=== PATIENT | male | born 1935 | race Two or more races ===

== ENCOUNTER 2020-12-06 14:48 | Inpatient (IN) | payer MEDICARE, MEDICAID ==
[~2020-12-06] VITALS: Ht 172.7 cm; Wt 91.8 kg
[2020-12-06] MEDS ORDERED: CEFTRIAXONE 1 G PREMIX 50 ML IV ONE (15:15)
[2020-12-06] MEDS ORDERED: AZITHROMYCIN 500 MG in DEXT 5% WATER 250 ML IV ONE (15:15)
[2020-12-06 15:58] LABS: BASOPHILS % 0.3 % (0.0-2.0); HEMOGLOBIN. 12.3 g/dL (14.0-18.0); MEAN CORPUSCULAR HEMOGLOBIN 31.8 pg (28.0-32.0); MEAN CORPUSCULAR VOLUME 90.3 fL (80.0-94.0); MEAN PLATELET VOLUME 7.6 fl (7.4-10.4); MONOCYTES % 7.7 % (2.0-8.0); PLATELET 194 x1000/uL (130-400); RED BLOOD CELL COUNT 3.88 mill/uL (4.7-6.1); RED CELL DISTRIBUTION WIDTH 13.7 % (11.6-14.6)
[2020-12-06 16:05] LABS: CHLORIDE 97 mEq/L (98-107)
[2020-12-06 16:13] LABS: PARTIAL THROMBOPLASTIN TIME 40.1 sec (23.4-31.0); PROTHROMBIN TIME 10.4 sec (9.6-11.0)
[2020-12-06] MEDS ORDERED: DEXAMETHASONE 10 MG/ML VIAL IV ONE (16:15)
[2020-12-06 16:18] LABS: CLARITY URINE CLEAR (CLEAR); COLOR URINE DARK YELLOW (YELLOW); KETONES URINE TRACE (NEGATIVE); LEUKOCYTE ESTERASE URINE TRACE (NEGATIVE); NITRITE URINE NEGATIVE (NEGATIVE); OCCULT BLOOD URINE TRACE (NEGATIVE); PH URINE 5.5 (4.5-8.0); PROTEIN URINE 2+ (NEGATIVE); SPECIFIC GRAVITY URINE 1.027 (1.005-1.030)
[2020-12-06] MEDS ORDERED: ENOXAPARIN 100MG/ML SYR SUBCUT ONE (17:30)
[2020-12-06] MEDS ORDERED: IOHEXOL-350 100 ML BOTTLE ONE (20:05)
[2020-12-06] MEDS ORDERED: ASPIRIN 325MG EC TABLET PO ONE (20:15)
[2020-12-06] MEDS ORDERED: NA PHOS,M-B/NA PHOS,DI-BA ENEMA 118ML PR PRN (22:00)
[2020-12-06] MEDS ORDERED: KETOROLAC 15MG/ML VIAL IV PRN (22:00)
[2020-12-06] MEDS ORDERED: NITROGLYCERIN 0.4MG TABLET SL SL PRN (22:00)
[2020-12-06] MEDS ORDERED: ACETAMINOPHEN 325MG TABLET PO PRN (22:00)
[2020-12-06] MEDS ORDERED: TRAMADOL 50MG TABLET PO PRN (22:00)
[2020-12-06] MEDS ORDERED: ALBUTEROL 6.7GM HFA INHALER ORI PRN (22:00)
[2020-12-06 22:30] VITALS: BP 137/77
[2020-12-06 22:59] LABS: T4 FREE 1.43 ng/dL (0.76-1.46)
[2020-12-07] MEDS: GUAIFENESIN/DM 600MG/30MG ER TAB 12HR PO SCH ×3 (00:27→20:19)
[2020-12-07] MEDS: GUAIFENESIN 200MG/10ML SUGAR FREE UDC PO PRN (00:27)
[2020-12-07] MEDS: DILTIAZEM HCL 60MG TABLET PO SCH ×5 (00:28→23:10)
[2020-12-07] MEDS: ENOXAPARIN 30MG/0.3ML SYR SUBCUT SCH ×3 (00:28→20:19)
[2020-12-07 01:23] LABS: CREATINE KINASE 652 IU/L (39-308)
[2020-12-07 01:25] LABS: CREATINE KINASE MB FRACTION < 1.0 ng/mL (0.5-3.6)
[2020-12-07] MEDS: ALBUTEROL 6.7GM HFA INHALER ORI SCH ×4 (03:00→20:20)
[2020-12-07 04:00] VITALS: BP 169/88
[2020-12-07] MEDS: CLONIDINE 0.1MG TABLET PO PRN (04:57)
[2020-12-07 08:00] VITALS: BP 127/43
[2020-12-07] MEDS: ZINC SULFATE 220 MG ( 50 ) CAPSULE PO SCH (09:27)
[2020-12-07] MEDS: CHOLECALCIFEROL (D3) 1000 UNIT TABLET PO SCH (09:27)
[2020-12-07] MEDS: ASCORBIC ACID 500 MG TABLET PO SCH ×2 (09:27→20:19)
[2020-12-07] MEDS: ASPIRIN 325MG EC TABLET PO SCH (09:28)
[2020-12-07] MEDS: DEXAMETHASONE 10 MG/ML VIAL IV SCH (09:28)
[2020-12-07] MEDS: FAMOTIDINE 20MG TABLET PO SCH ×2 (09:28→20:19)
[2020-12-07 10:33] LABS: BASOPHILS % 0.1 % (0.0-2.0); HEMATOCRIT. 40.1 % (42.0-52.0); HEMOGLOBIN. 13.5 g/dL (14.0-18.0); LYMPHOCYTES % 15.2 % (20.0-50.0); MEAN CORPUSCULAR HEMOGLOBIN 31.2 pg (28.0-32.0); MEAN CORPUSCULAR VOLUME 92.9 fL (80.0-94.0); MEAN PLATELET VOLUME 7.8 fl (7.4-10.4); MONOCYTES % 7.1 % (2.0-8.0); NEUTROPHILS % 77.6 % (40.0-76.0); PLATELET 206 x1000/uL (130-400); RED BLOOD CELL COUNT 4.31 mill/uL (4.7-6.1); RED CELL DISTRIBUTION WIDTH 13.7 % (11.6-14.6)
[2020-12-07 10:43] LABS: CHLORIDE 98 mEq/L (98-107)
[2020-12-07 10:55] LABS: PHOSPHORUS 3.7 mg/dL (2.5-4.9)
[2020-12-07 10:56] LABS: CREATINE KINASE 177 IU/L (39-308)
[2020-12-07 10:59] LABS: CREATINE KINASE MB FRACTION 3.5 ng/mL (0.5-3.6)
[2020-12-07 11:58] VITALS: BP 117/67
[2020-12-07] MEDS ORDERED: CEFTRIAXONE 1,000 MG in DEXTROSE 5% WATER 50 ML IV SCH (15:00)
[2020-12-07] MEDS ORDERED: NALOXONE HCL 0.4MG/ML VIAL IV PRN (15:00)
[2020-12-07 16:00] VITALS: BP 128/59
[2020-12-07] MEDS ORDERED: AZITHROMYCIN 500 MG in DEXT 5% WATER 250 ML IV SCH (16:00)
[2020-12-07] MEDS: CEFTRIAXONE 1,000 MG in DEXTROSE 5% WATER 50 ML IV SCH (16:06)
[2020-12-07] MEDS: AZITHROMYCIN 500 MG in DEXT 5% WATER 250 ML IV SCH (17:21)
[2020-12-07 20:00] VITALS: BP 132/57
[2020-12-07] MEDS: ZOLPIDEM TARTRATE 5MG TABLET PO PRN ×2 (23:08→23:10)
[2020-12-08] VITALS: BP_SYST 102; BP_SYST 114; BP_DIAS 61; BP_DIAS 78
[2020-12-08] MEDS: ALBUTEROL 6.7GM HFA INHALER ORI SCH ×4 (03:04→21:48)
[2020-12-08 04:00] VITALS: BP_SYST 102; BP_SYST 133; BP_DIAS 61; BP_DIAS 97
[2020-12-08] MEDS: DILTIAZEM HCL 60MG TABLET PO SCH ×4 (05:06→23:43)
[2020-12-08 08:00] VITALS: BP 142/80
[2020-12-08] MEDS: ENOXAPARIN 30MG/0.3ML SYR SUBCUT SCH ×2 (09:53→21:44)
[2020-12-08] MEDS: ASPIRIN 325MG EC TABLET PO SCH (09:54)
[2020-12-08] MEDS: CHOLECALCIFEROL (D3) 1000 UNIT TABLET PO SCH (09:54)
[2020-12-08] MEDS: GUAIFENESIN/DM 600MG/30MG ER TAB 12HR PO SCH ×2 (09:54→21:43)
[2020-12-08] MEDS: ZINC SULFATE 220 MG ( 50 ) CAPSULE PO SCH (09:55)
[2020-12-08] MEDS: ASCORBIC ACID 500 MG TABLET PO SCH ×2 (09:55→21:43)
[2020-12-08] MEDS: FAMOTIDINE 20MG TABLET PO SCH ×2 (09:55→21:43)
[2020-12-08] MEDS: DEXAMETHASONE 10 MG/ML VIAL IV SCH (09:55)
[2020-12-08 12:00] VITALS: BP 138/74
[2020-12-08 15:50] LABS: FOLIC ACID (FOLATE) SERUM 7.4 ng/mL (>5.38)
[2020-12-08] MEDS: CEFTRIAXONE 1,000 MG in DEXTROSE 5% WATER 50 ML IV SCH (15:55)
[2020-12-08 16:00] VITALS: BP 132/72
[2020-12-08] MEDS: MAGNESIUM/ALUMINUM HYDROXIDE/SIMETHICONE 30ML UDC PO PRN (17:48)
[2020-12-08] MEDS: AZITHROMYCIN 500 MG in DEXT 5% WATER 250 ML IV SCH (17:48)
[2020-12-08 20:00] VITALS: BP 163/99
[2020-12-08] MEDS: CLONIDINE 0.1MG TABLET PO PRN (21:43)
[2020-12-09] VITALS: BP 137/62
[2020-12-09] MEDS: ALBUTEROL 6.7GM HFA INHALER ORI SCH ×4 (03:00→21:01)
[2020-12-09 04:00] VITALS: BP 138/85
[2020-12-09] MEDS: DILTIAZEM HCL 60MG TABLET PO SCH ×3 (06:04→18:12)
[2020-12-09 08:00] VITALS: BP 136/44
[2020-12-09] MEDS: ASPIRIN 325MG EC TABLET PO SCH (09:25)
[2020-12-09] MEDS: CHOLECALCIFEROL (D3) 1000 UNIT TABLET PO SCH (09:25)
[2020-12-09] MEDS: ASCORBIC ACID 500 MG TABLET PO SCH ×2 (09:25→20:55)
[2020-12-09] MEDS: ZINC SULFATE 220 MG ( 50 ) CAPSULE PO SCH (09:25)
[2020-12-09] MEDS: GUAIFENESIN/DM 600MG/30MG ER TAB 12HR PO SCH ×2 (09:25→20:55)
[2020-12-09] MEDS: FAMOTIDINE 20MG TABLET PO SCH ×2 (09:25→20:55)
[2020-12-09] MEDS: ENOXAPARIN 30MG/0.3ML SYR SUBCUT SCH ×2 (09:26→20:56)
[2020-12-09] MEDS: DEXAMETHASONE 10 MG/ML VIAL IV SCH (09:26)
[2020-12-09 12:00] VITALS: BP 156/64
[2020-12-09 16:00] VITALS: BP 156/67
[2020-12-09] MEDS: AZITHROMYCIN 500 MG in DEXT 5% WATER 250 ML IV SCH (16:34)
[2020-12-09] MEDS: DOCUSATE SODIUM 100MG CAPSULE PO PRN (16:34)
[2020-12-09] MEDS: CEFTRIAXONE 1,000 MG in DEXTROSE 5% WATER 50 ML IV SCH (16:34)
[2020-12-09 20:00] VITALS: BP 142/55
[2020-12-09] MEDS: ZOLPIDEM TARTRATE 5MG TABLET PO PRN (20:55)
[2020-12-09] MEDS: MAGNESIUM/ALUMINUM HYDROXIDE/SIMETHICONE 30ML UDC PO PRN (20:55)
[2020-12-10] VITALS (7 sets, daily range): BP systolic 140–172; BP diastolic 47–83
[2020-12-10] MEDS: DILTIAZEM HCL 60MG TABLET PO SCH ×4 (05:04→17:21)
[2020-12-10] MEDS: ALBUTEROL 6.7GM HFA INHALER ORI SCH ×4 (05:07→20:22)
[2020-12-10] MEDS: ASPIRIN 325MG EC TABLET PO SCH (08:16)
[2020-12-10] MEDS: ASCORBIC ACID 500 MG TABLET PO SCH ×2 (08:16→20:24)
[2020-12-10] MEDS: ZINC SULFATE 220 MG ( 50 ) CAPSULE PO SCH (08:16)
[2020-12-10] MEDS: DEXAMETHASONE 10 MG/ML VIAL IV SCH (08:16)
[2020-12-10] MEDS: GUAIFENESIN/DM 600MG/30MG ER TAB 12HR PO SCH ×2 (08:16→20:24)
[2020-12-10] MEDS: FAMOTIDINE 20MG TABLET PO SCH ×2 (08:16→20:24)
[2020-12-10] MEDS: ENOXAPARIN 30MG/0.3ML SYR SUBCUT SCH ×2 (08:17→20:23)
[2020-12-10] MEDS: CHOLECALCIFEROL (D3) 1000 UNIT TABLET PO SCH (08:17)
[2020-12-10] MEDS: LACTULOSE 20G/30ML UDC PO PRN (15:42)
[2020-12-10] MEDS: CEFTRIAXONE 1,000 MG in DEXTROSE 5% WATER 50 ML IV SCH (15:42)
[2020-12-10] MEDS: CLONIDINE 0.1MG TABLET PO PRN (16:06)
[2020-12-10] MEDS: GUAIFENESIN 200MG/10ML SUGAR FREE UDC PO PRN (16:06)
[2020-12-10] MEDS: AZITHROMYCIN 500 MG in DEXT 5% WATER 250 ML IV SCH (16:07)
[2020-12-10] MEDS ORDERED: LORAZEPAM 0.5MG TABLET PO PRN (18:45)
[2020-12-11] VITALS (8 sets, daily range): BP systolic 135–151; BP diastolic 52–79
[2020-12-11] MEDS: DILTIAZEM HCL 60MG TABLET PO SCH ×5 (00:47→23:27)
[2020-12-11] MEDS: ALBUTEROL 6.7GM HFA INHALER ORI SCH ×4 (02:33→21:13)
[2020-12-11] MEDS: LACTULOSE 20G/30ML UDC PO PRN (06:35)
[2020-12-11] MEDS: CHOLECALCIFEROL (D3) 1000 UNIT TABLET PO SCH (09:11)
[2020-12-11] MEDS: DEXAMETHASONE 10 MG/ML VIAL IV SCH (09:11)
[2020-12-11] MEDS: ASCORBIC ACID 500 MG TABLET PO SCH ×2 (09:11→20:11)
[2020-12-11] MEDS: FAMOTIDINE 20MG TABLET PO SCH ×2 (09:11→20:11)
[2020-12-11] MEDS: ASPIRIN 325MG EC TABLET PO SCH (09:11)
[2020-12-11] MEDS: ENOXAPARIN 30MG/0.3ML SYR SUBCUT SCH ×2 (09:11→20:10)
[2020-12-11] MEDS: GUAIFENESIN 200MG/10ML SUGAR FREE UDC PO PRN (09:11)
[2020-12-11] MEDS: ZINC SULFATE 220 MG ( 50 ) CAPSULE PO SCH (09:11)
[2020-12-11] MEDS: GUAIFENESIN/DM 600MG/30MG ER TAB 12HR PO SCH ×2 (09:11→20:11)
[2020-12-11] MEDS: CEFTRIAXONE 1,000 MG in DEXTROSE 5% WATER 50 ML IV SCH (15:28)
[2020-12-11] MEDS: ZOLPIDEM TARTRATE 5MG TABLET PO PRN (20:35)
[2020-12-12] VITALS (12 sets, daily range): BP systolic 124–156; BP diastolic 67–90
[2020-12-12] MEDS: ALBUTEROL 6.7GM HFA INHALER ORI SCH ×3 (03:25→14:44)
[2020-12-12] MEDS: DILTIAZEM HCL 60MG TABLET PO SCH ×4 (05:06→23:30)
[2020-12-12 08:21] LABS: HEMATOCRIT. 36.2 % (42.0-52.0); HEMOGLOBIN. 12.6 g/dL (14.0-18.0); MEAN CORPUSCULAR HEMOGLOBIN 31.4 pg (28.0-32.0); MEAN CORPUSCULAR VOLUME 90.4 fL (80.0-94.0); MEAN PLATELET VOLUME 7.2 fl (7.4-10.4); PLATELET 425 x1000/uL (130-400); RED CELL DISTRIBUTION WIDTH 13.9 % (11.6-14.6)
[2020-12-12] MEDS: ASPIRIN 325MG EC TABLET PO SCH (08:55)
[2020-12-12] MEDS: ENOXAPARIN 30MG/0.3ML SYR SUBCUT SCH ×2 (08:56→21:23)
[2020-12-12] MEDS: CHOLECALCIFEROL (D3) 1000 UNIT TABLET PO SCH (08:56)
[2020-12-12] MEDS: FAMOTIDINE 20MG TABLET PO SCH ×2 (08:56→21:23)
[2020-12-12] MEDS: ZINC SULFATE 220 MG ( 50 ) CAPSULE PO SCH (08:56)
[2020-12-12] MEDS: DEXAMETHASONE 10 MG/ML VIAL IV SCH (08:56)
[2020-12-12] MEDS: GUAIFENESIN/DM 600MG/30MG ER TAB 12HR PO SCH ×2 (08:56→21:23)
[2020-12-12] MEDS: ASCORBIC ACID 500 MG TABLET PO SCH ×2 (08:56→21:23)
[2020-12-12 09:01] LABS: CHLORIDE 103 mEq/L (98-107)
[2020-12-12 15:37] LABS: PLATELET ESTIMATE SLIGHTLY INCREASED
[2020-12-12] MEDS ORDERED: IPRATROPIUM/ALBUTEROL 0.5-3(2.5)MG/3ML NEB HHN PRN (17:45)
[2020-12-12] MEDS: ACETAMINOPHEN 325MG TABLET PO PRN (19:06)
[2020-12-12] MEDS: IPRATROPIUM/ALBUTEROL 0.5-3(2.5)MG/3ML NEB HHN SCH (20:35)
[2020-12-12] MEDS: ZOLPIDEM TARTRATE 5MG TABLET PO PRN (21:23)
[2020-12-13] VITALS (12 sets, daily range): BP systolic 101–165; BP diastolic 39–84
[2020-12-13] MEDS: DILTIAZEM HCL 60MG TABLET PO SCH ×3 (05:10→18:00)
[2020-12-13] MEDS: IPRATROPIUM/ALBUTEROL 0.5-3(2.5)MG/3ML NEB HHN SCH ×3 (07:26→20:48)
[2020-12-13] MEDS: GUAIFENESIN/DM 600MG/30MG ER TAB 12HR PO SCH ×2 (08:55→21:06)
[2020-12-13] MEDS: ZINC SULFATE 220 MG ( 50 ) CAPSULE PO SCH (08:56)
[2020-12-13] MEDS: CHOLECALCIFEROL (D3) 1000 UNIT TABLET PO SCH (08:56)
[2020-12-13] MEDS: ASPIRIN 325MG EC TABLET PO SCH (08:56)
[2020-12-13] MEDS: DOCUSATE SODIUM 100MG CAPSULE PO PRN (08:56)
[2020-12-13] MEDS: FAMOTIDINE 20MG TABLET PO SCH ×2 (08:56→21:06)
[2020-12-13] MEDS: ASCORBIC ACID 500 MG TABLET PO SCH ×2 (08:56→21:06)
[2020-12-13] MEDS: DEXAMETHASONE 10 MG/ML VIAL IV SCH (08:57)
[2020-12-13] MEDS: ENOXAPARIN 30MG/0.3ML SYR SUBCUT SCH ×2 (08:57→21:05)
[2020-12-13 12:01] LABS: BG BASE EXCESS -1.8 mmol/L (-2.0-2.0); BG CARBOXYHEMOGLOBIN 0.3 % (0.5-1.5); BG DEOXYHEMOGLOBIN 10.3 % (0.0-5.0); BG FRACTION INSPIRED OXYGEN 100; BG HCO3 ACT 21.3 mmol/L (22.0-26.0); BG METHEMOGLOBIN 0.3 % (0.0-1.5); BG OXYGEN SATURATION 89.6 % (92.0-98.5); BG OXYHEMOGLOBIN 89.1 % (94.0-97.0); BG PCO2 31.4 mmHg (35.0-45.0); BG PH 7.449 (7.350-7.450); BG PO2 57.7 mmHg (75.0-100.0); BG SAMPLE SITE LEFT RADIAL; BG TOTAL HEMOGLOBIN 13.6 g/dL (12.0-18.0); BG VENT MODE MASK - NRB
[2020-12-13] MEDS: FLUTICASONE PROPIONATE 50MCG/SPRAY BOTTLE BOTHNSTRLS SCH ×2 (15:11→21:06)
[2020-12-13] MEDS: ZOLPIDEM TARTRATE 5MG TABLET PO PRN (21:06)
[2020-12-13] MEDS: ACETAMINOPHEN 325MG TABLET PO PRN (21:07)
[2020-12-14] VITALS (13 sets, daily range): BP systolic 124–146; BP diastolic 39–102
[2020-12-14] MEDS: DILTIAZEM HCL 60MG TABLET PO SCH ×4 (00:16→17:25)
[2020-12-14 07:22] LABS: HEMATOCRIT. 35.9 % (42.0-52.0); HEMOGLOBIN. 12.5 g/dL (14.0-18.0); MEAN CORPUSCULAR HEMOGLOBIN 31.6 pg (28.0-32.0); MEAN CORPUSCULAR VOLUME 90.5 fL (80.0-94.0); MEAN PLATELET VOLUME 6.9 fl (7.4-10.4); PLATELET 446 x1000/uL (130-400); RED BLOOD CELL COUNT 3.96 mill/uL (4.7-6.1); RED CELL DISTRIBUTION WIDTH 13.8 % (11.6-14.6)
[2020-12-14 07:34] LABS: CHLORIDE 105 mEq/L (98-107)
[2020-12-14] MEDS: FAMOTIDINE 20MG TABLET PO SCH ×2 (08:47→20:42)
[2020-12-14] MEDS: GUAIFENESIN/DM 600MG/30MG ER TAB 12HR PO SCH ×2 (08:47→20:42)
[2020-12-14] MEDS: ZINC SULFATE 220 MG ( 50 ) CAPSULE PO SCH (08:47)
[2020-12-14] MEDS: ASCORBIC ACID 500 MG TABLET PO SCH ×2 (08:47→20:42)
[2020-12-14] MEDS: ASPIRIN 325MG EC TABLET PO SCH (08:47)
[2020-12-14] MEDS: DEXAMETHASONE 10 MG/ML VIAL IV SCH (08:47)
[2020-12-14] MEDS: ENOXAPARIN 30MG/0.3ML SYR SUBCUT SCH ×2 (08:47→20:42)
[2020-12-14] MEDS: FLUTICASONE PROPIONATE 50MCG/SPRAY BOTTLE BOTHNSTRLS SCH ×2 (08:48→20:42)
[2020-12-14] MEDS: CHOLECALCIFEROL (D3) 1000 UNIT TABLET PO SCH (08:48)
[2020-12-14] MEDS: IPRATROPIUM/ALBUTEROL 0.5-3(2.5)MG/3ML NEB HHN SCH ×3 (09:05→21:01)
[2020-12-14 18:24] LABS: PLATELET ESTIMATE SLIGHTLY INCREASED
[2020-12-14] MEDS: ACETAMINOPHEN 325MG TABLET PO PRN (20:42)
[2020-12-14] MEDS: ZOLPIDEM TARTRATE 5MG TABLET PO PRN (20:43)
[2020-12-15] VITALS (14 sets, daily range): BP systolic 111–153; BP diastolic 45–88
[2020-12-15] MEDS: DILTIAZEM HCL 60MG TABLET PO SCH ×4 (00:09→18:09)
[2020-12-15] MEDS: IPRATROPIUM/ALBUTEROL 0.5-3(2.5)MG/3ML NEB HHN SCH ×4 (01:14→19:30)
[2020-12-15] MEDS: ASCORBIC ACID 500 MG TABLET PO SCH ×2 (09:24→21:12)
[2020-12-15] MEDS: FAMOTIDINE 20MG TABLET PO SCH ×2 (09:24→21:12)
[2020-12-15] MEDS: ASPIRIN 325MG EC TABLET PO SCH (09:24)
[2020-12-15] MEDS: CHOLECALCIFEROL (D3) 1000 UNIT TABLET PO SCH (09:24)
[2020-12-15] MEDS: DEXAMETHASONE 10 MG/ML VIAL IV SCH (09:24)
[2020-12-15] MEDS: ENOXAPARIN 30MG/0.3ML SYR SUBCUT SCH ×2 (09:24→21:14)
[2020-12-15] MEDS: ZINC SULFATE 220 MG ( 50 ) CAPSULE PO SCH (09:24)
[2020-12-15] MEDS: FLUTICASONE PROPIONATE 50MCG/SPRAY BOTTLE BOTHNSTRLS SCH ×2 (09:24→21:14)
[2020-12-15] MEDS: GUAIFENESIN/DM 600MG/30MG ER TAB 12HR PO SCH ×2 (09:24→21:14)
[2020-12-15] MEDS: ACETAMINOPHEN 325MG TABLET PO PRN (21:13)
[2020-12-15] MEDS: ZOLPIDEM TARTRATE 5MG TABLET PO PRN (21:13)
[2020-12-16] VITALS (19 sets, daily range): BP systolic 105–158; BP diastolic 43–91
[2020-12-16] MEDS: DILTIAZEM HCL 60MG TABLET PO SCH ×4 (00:56→17:49)
[2020-12-16] MEDS: FAMOTIDINE 20MG TABLET PO SCH ×2 (08:54→21:07)
[2020-12-16] MEDS: CHOLECALCIFEROL (D3) 1000 UNIT TABLET PO SCH (08:54)
[2020-12-16] MEDS: ASPIRIN 325MG EC TABLET PO SCH (08:54)
[2020-12-16] MEDS: GUAIFENESIN/DM 600MG/30MG ER TAB 12HR PO SCH ×2 (08:54→21:07)
[2020-12-16] MEDS: DOCUSATE SODIUM 100MG CAPSULE PO PRN (08:54)
[2020-12-16] MEDS: DEXAMETHASONE 10 MG/ML VIAL IV SCH (08:54)
[2020-12-16] MEDS: FLUTICASONE PROPIONATE 50MCG/SPRAY BOTTLE BOTHNSTRLS SCH ×2 (08:54→21:08)
[2020-12-16] MEDS: ASCORBIC ACID 500 MG TABLET PO SCH ×2 (08:54→21:07)
[2020-12-16] MEDS: ZINC SULFATE 220 MG ( 50 ) CAPSULE PO SCH (08:54)
[2020-12-16] MEDS: ENOXAPARIN 30MG/0.3ML SYR SUBCUT SCH ×2 (08:55→21:11)
[2020-12-16] MEDS: IPRATROPIUM/ALBUTEROL 0.5-3(2.5)MG/3ML NEB HHN SCH ×4 (09:13→20:03)
[2020-12-16] MEDS: MAGNESIUM/ALUMINUM HYDROXIDE/SIMETHICONE 30ML UDC PO PRN (19:50)
[2020-12-16] MEDS: ZOLPIDEM TARTRATE 5MG TABLET PO PRN (21:07)
[2020-12-16] MEDS: ACETAMINOPHEN 325MG TABLET PO PRN (21:07)
[2020-12-17] VITALS (15 sets, daily range): BP systolic 111–159; BP diastolic 43–85
[2020-12-17] MEDS: IPRATROPIUM/ALBUTEROL 0.5-3(2.5)MG/3ML NEB HHN SCH ×4 (00:51→21:32)
[2020-12-17] MEDS: DILTIAZEM HCL 60MG TABLET PO SCH ×4 (01:03→17:30)
[2020-12-17] MEDS: LACTULOSE 20G/30ML UDC PO PRN (06:36)
[2020-12-17] MEDS ORDERED: DEXAMETHASONE 10 MG/ML VIAL PO SCH (09:00)
[2020-12-17] MEDS: ASPIRIN 325MG EC TABLET PO SCH (09:26)
[2020-12-17] MEDS: GUAIFENESIN/DM 600MG/30MG ER TAB 12HR PO SCH ×2 (09:26→20:48)
[2020-12-17] MEDS: CHOLECALCIFEROL (D3) 1000 UNIT TABLET PO SCH (09:26)
[2020-12-17] MEDS: FAMOTIDINE 20MG TABLET PO SCH ×2 (09:26→20:48)
[2020-12-17] MEDS: ZINC SULFATE 220 MG ( 50 ) CAPSULE PO SCH (09:26)
[2020-12-17] MEDS: ASCORBIC ACID 500 MG TABLET PO SCH ×2 (09:26→20:48)
[2020-12-17] MEDS: ENOXAPARIN 30MG/0.3ML SYR SUBCUT SCH ×2 (09:26→20:48)
[2020-12-17] MEDS: FLUTICASONE PROPIONATE 50MCG/SPRAY BOTTLE BOTHNSTRLS SCH ×2 (09:27→20:49)
[2020-12-17 16:25] LABS: HEMATOCRIT. 40.9 % (42.0-52.0); HEMOGLOBIN. 13.6 g/dL (14.0-18.0); MEAN CORPUSCULAR HEMOGLOBIN 30.4 pg (28.0-32.0); MEAN CORPUSCULAR VOLUME 91.4 fL (80.0-94.0); MEAN PLATELET VOLUME 7.3 fl (7.4-10.4); PLATELET 465 x1000/uL (130-400); RED BLOOD CELL COUNT 4.47 mill/uL (4.7-6.1); RED CELL DISTRIBUTION WIDTH 13.9 % (11.6-14.6)
[2020-12-17 16:29] LABS: CHLORIDE 102 mEq/L (98-107)
[2020-12-17] MEDS: ONDANSETRON HCL 4MG/2ML INJ IV PRN (17:29)
[2020-12-17] MEDS: METOPROLOL TARTRATE 50MG TABLET PO SCH (17:30)
[2020-12-17] MEDS ORDERED: ZOLPIDEM TARTRATE 5MG TABLET PO PRN (21:45)
[2020-12-17 22:07] LABS: PLATELET ESTIMATE SLIGHTLY INCREASED
[2020-12-18] VITALS (12 sets, daily range): BP systolic 111–141; BP diastolic 46–80
[2020-12-18] MEDS: DILTIAZEM HCL 60MG TABLET PO SCH ×4 (00:27→17:21)
[2020-12-18] MEDS: IPRATROPIUM/ALBUTEROL 0.5-3(2.5)MG/3ML NEB HHN SCH ×4 (01:02→19:57)
[2020-12-18 06:00] LABS: CHLORIDE 104 mEq/L (98-107)
[2020-12-18] MEDS: FAMOTIDINE 20MG TABLET PO SCH ×2 (08:30→20:34)
[2020-12-18] MEDS: ASCORBIC ACID 500 MG TABLET PO SCH ×2 (08:30→20:35)
[2020-12-18] MEDS: ZINC SULFATE 220 MG ( 50 ) CAPSULE PO SCH (08:30)
[2020-12-18] MEDS: GUAIFENESIN/DM 600MG/30MG ER TAB 12HR PO SCH ×2 (08:30→20:34)
[2020-12-18] MEDS: ASPIRIN 81MG EC TABLET PO SCH (08:31)
[2020-12-18] MEDS: CHOLECALCIFEROL (D3) 1000 UNIT TABLET PO SCH (08:31)
[2020-12-18] MEDS: METOPROLOL TARTRATE 50MG TABLET PO SCH ×2 (08:31→20:36)
[2020-12-18] MEDS: DEXAMETHASONE 4MG/ML 1ML VIAL PO SCH (08:32)
[2020-12-18] MEDS: ENOXAPARIN 30MG/0.3ML SYR SUBCUT SCH ×2 (08:32→20:35)
[2020-12-18] MEDS: FLUTICASONE PROPIONATE 50MCG/SPRAY BOTTLE BOTHNSTRLS SCH ×2 (08:33→20:44)
[2020-12-18 10:17] LABS: BG BASE EXCESS -2.9 mmol/L (-2.0-2.0); BG CARBOXYHEMOGLOBIN 0.3 % (0.5-1.5); BG DEOXYHEMOGLOBIN 4.2 % (0.0-5.0); BG FRACTION INSPIRED OXYGEN 100; BG HCO3 ACT 21.5 mmol/L (22.0-26.0); BG METHEMOGLOBIN 0.2 % (0.0-1.5); BG OXYGEN SATURATION 95.8 % (92.0-98.5); BG OXYHEMOGLOBIN 95.3 % (94.0-97.0); BG PCO2 36.1 mmHg (35.0-45.0); BG PH 7.392 (7.350-7.450); BG PO2 84.1 mmHg (75.0-100.0); BG SAMPLE SITE LEFT BRACHIAL; BG TOTAL HEMOGLOBIN 13.6 g/dL (12.0-18.0); BG VENT MODE HIGH FLOW
[2020-12-18] MEDS: ONDANSETRON HCL 4MG/2ML INJ IV PRN (10:36)
[2020-12-18] MEDS: ZOLPIDEM TARTRATE 5MG TABLET PO PRN (20:35)
[2020-12-19] VITALS (13 sets, daily range): BP systolic 113–153; BP diastolic 47–99
[2020-12-19] MEDS: IPRATROPIUM/ALBUTEROL 0.5-3(2.5)MG/3ML NEB HHN SCH ×4 (00:42→21:17)
[2020-12-19] MEDS: DILTIAZEM HCL 60MG TABLET PO SCH ×5 (06:32→23:44)
[2020-12-19] MEDS: GUAIFENESIN/DM 600MG/30MG ER TAB 12HR PO SCH ×2 (08:36→20:48)
[2020-12-19] MEDS: CHOLECALCIFEROL (D3) 1000 UNIT TABLET PO SCH (08:36)
[2020-12-19] MEDS: ASPIRIN 81MG EC TABLET PO SCH (08:36)
[2020-12-19] MEDS: DEXAMETHASONE 4MG/ML 1ML VIAL PO SCH (08:37)
[2020-12-19] MEDS: ASCORBIC ACID 500 MG TABLET PO SCH ×2 (08:37→20:48)
[2020-12-19] MEDS: ZINC SULFATE 220 MG ( 50 ) CAPSULE PO SCH (08:37)
[2020-12-19] MEDS: METOPROLOL TARTRATE 50MG TABLET PO SCH ×2 (08:37→20:50)
[2020-12-19] MEDS: ENOXAPARIN 30MG/0.3ML SYR SUBCUT SCH ×2 (08:37→20:47)
[2020-12-19] MEDS: FAMOTIDINE 20MG TABLET PO SCH ×2 (08:42→20:48)
[2020-12-19] MEDS: FLUTICASONE PROPIONATE 50MCG/SPRAY BOTTLE BOTHNSTRLS SCH ×2 (08:42→20:47)
[2020-12-19] MEDS: MAGNESIUM/ALUMINUM HYDROXIDE/SIMETHICONE 30ML UDC PO PRN (14:03)
[2020-12-19] MEDS: ZOLPIDEM TARTRATE 5MG TABLET PO PRN (20:48)
[2020-12-20] VITALS (11 sets, daily range): BP systolic 112–152; BP diastolic 59–84
[2020-12-20] MEDS: IPRATROPIUM/ALBUTEROL 0.5-3(2.5)MG/3ML NEB HHN SCH ×4 (01:49→21:30)
[2020-12-20] MEDS: DILTIAZEM HCL 60MG TABLET PO SCH ×3 (06:00→17:37)
[2020-12-20 06:46] LABS: HEMATOCRIT. 35.9 % (42.0-52.0); HEMOGLOBIN. 12.7 g/dL (14.0-18.0); MEAN CORPUSCULAR HEMOGLOBIN 31.7 pg (28.0-32.0); MEAN CORPUSCULAR VOLUME 89.8 fL (80.0-94.0); MEAN PLATELET VOLUME 7.7 fl (7.4-10.4); PLATELET 262 x1000/uL (130-400); RED CELL DISTRIBUTION WIDTH 13.8 % (11.6-14.6)
[2020-12-20 07:06] LABS: CHLORIDE 107 mEq/L (98-107)
[2020-12-20] MEDS: ASPIRIN 81MG EC TABLET PO SCH (09:07)
[2020-12-20] MEDS: FAMOTIDINE 20MG TABLET PO SCH ×2 (09:07→20:22)
[2020-12-20] MEDS: GUAIFENESIN/DM 600MG/30MG ER TAB 12HR PO SCH ×2 (09:07→20:22)
[2020-12-20] MEDS: ASCORBIC ACID 500 MG TABLET PO SCH ×2 (09:07→20:22)
[2020-12-20] MEDS: ZINC SULFATE 220 MG ( 50 ) CAPSULE PO SCH (09:07)
[2020-12-20] MEDS: CHOLECALCIFEROL (D3) 1000 UNIT TABLET PO SCH (09:07)
[2020-12-20] MEDS: DEXAMETHASONE 4MG/ML 1ML VIAL PO SCH (09:08)
[2020-12-20] MEDS: METOPROLOL TARTRATE 50MG TABLET PO SCH ×2 (09:08→20:17)
[2020-12-20] MEDS: ENOXAPARIN 30MG/0.3ML SYR SUBCUT SCH (09:08)
[2020-12-20 12:36] LABS: PLATELET ESTIMATE NORMAL
[2020-12-20] MEDS: ONDANSETRON HCL 4MG/2ML INJ IV PRN (17:37)
[2020-12-20] MEDS: ZOLPIDEM TARTRATE 5MG TABLET PO PRN (20:23)
[2020-12-21] VITALS (12 sets, daily range): BP systolic 120–160; BP diastolic 59–99
[2020-12-21] MEDS: IPRATROPIUM/ALBUTEROL 0.5-3(2.5)MG/3ML NEB HHN SCH ×4 (03:27→21:05)
[2020-12-21] MEDS: DILTIAZEM HCL 60MG TABLET PO SCH ×5 (05:51→23:24)
[2020-12-21] MEDS: ASPIRIN 81MG EC TABLET PO SCH (09:11)
[2020-12-21] MEDS: METOPROLOL TARTRATE 50MG TABLET PO SCH ×2 (09:11→20:36)
[2020-12-21] MEDS: ZINC SULFATE 220 MG ( 50 ) CAPSULE PO SCH (09:11)
[2020-12-21] MEDS: GUAIFENESIN/DM 600MG/30MG ER TAB 12HR PO SCH ×2 (09:11→20:36)
[2020-12-21] MEDS: DEXAMETHASONE 4MG/ML 1ML VIAL PO SCH (09:11)
[2020-12-21] MEDS: FAMOTIDINE 20MG TABLET PO SCH ×2 (09:11→20:36)
[2020-12-21] MEDS: ASCORBIC ACID 500 MG TABLET PO SCH ×2 (09:11→20:36)
[2020-12-21] MEDS: CHOLECALCIFEROL (D3) 1000 UNIT TABLET PO SCH (09:11)
[2020-12-21] MEDS: ONDANSETRON HCL 4MG/2ML INJ IV PRN (14:21)
[2020-12-21] MEDS: DOCUSATE SODIUM 100MG CAPSULE PO PRN (18:33)
[2020-12-21] MEDS: ENOXAPARIN 30MG/0.3ML SYR SUBCUT SCH (20:36)
[2020-12-21] MEDS: ZOLPIDEM TARTRATE 5MG TABLET PO PRN (20:36)
[2020-12-22] VITALS (13 sets, daily range): BP systolic 125–156; BP diastolic 47–95
[2020-12-22] MEDS: IPRATROPIUM/ALBUTEROL 0.5-3(2.5)MG/3ML NEB HHN SCH ×4 (01:20→21:07)
[2020-12-22] MEDS: DILTIAZEM HCL 60MG TABLET PO SCH ×3 (05:29→17:56)
[2020-12-22] MEDS: DEXAMETHASONE 4MG/ML 1ML VIAL PO SCH (08:39)
[2020-12-22] MEDS: GUAIFENESIN/DM 600MG/30MG ER TAB 12HR PO SCH ×2 (08:39→20:27)
[2020-12-22] MEDS: DOCUSATE SODIUM 100MG CAPSULE PO PRN (08:39)
[2020-12-22] MEDS: METOPROLOL TARTRATE 50MG TABLET PO SCH (08:40)
[2020-12-22] MEDS: FAMOTIDINE 20MG TABLET PO SCH ×2 (08:40→20:27)
[2020-12-22] MEDS: ASPIRIN 81MG EC TABLET PO SCH (08:40)
[2020-12-22] MEDS: ASCORBIC ACID 500 MG TABLET PO SCH ×2 (08:40→20:27)
[2020-12-22] MEDS: CHOLECALCIFEROL (D3) 1000 UNIT TABLET PO SCH (08:40)
[2020-12-22] MEDS: ZINC SULFATE 220 MG ( 50 ) CAPSULE PO SCH (08:40)
[2020-12-22] MEDS: ENOXAPARIN 30MG/0.3ML SYR SUBCUT SCH ×2 (08:42→20:29)
[2020-12-22] MEDS ORDERED: ALPRAZOLAM 0.25 MG TABLET PO PRN (12:15)
[2020-12-22] MEDS: GUAIFENESIN 200MG/10ML SUGAR FREE UDC PO PRN (13:00)
[2020-12-22] MEDS: LACTULOSE 20G/30ML UDC PO PRN (17:56)
[2020-12-22] MEDS: METOPROLOL TARTRATE 25MG TABLET PO SCH (20:29)
[2020-12-22] MEDS: ZOLPIDEM TARTRATE 5MG TABLET PO PRN (20:30)
[2020-12-23] VITALS (11 sets, daily range): BP systolic 125–154; BP diastolic 64–90
[2020-12-23] MEDS: IPRATROPIUM/ALBUTEROL 0.5-3(2.5)MG/3ML NEB HHN SCH ×4 (01:15→19:57)
[2020-12-23] MEDS: DILTIAZEM HCL 60MG TABLET PO SCH ×4 (06:00→17:10)
[2020-12-23] MEDS: GUAIFENESIN/DM 600MG/30MG ER TAB 12HR PO SCH ×2 (08:49→20:30)
[2020-12-23] MEDS: ENOXAPARIN 30MG/0.3ML SYR SUBCUT SCH ×2 (08:49→20:31)
[2020-12-23] MEDS: DOCUSATE SODIUM 100MG CAPSULE PO PRN (08:49)
[2020-12-23] MEDS: FAMOTIDINE 20MG TABLET PO SCH ×2 (08:49→20:30)
[2020-12-23] MEDS: ASCORBIC ACID 500 MG TABLET PO SCH ×2 (08:49→20:30)
[2020-12-23] MEDS: ZINC SULFATE 220 MG ( 50 ) CAPSULE PO SCH (08:49)
[2020-12-23] MEDS: CHOLECALCIFEROL (D3) 1000 UNIT TABLET PO SCH (08:49)
[2020-12-23] MEDS: ASPIRIN 81MG EC TABLET PO SCH (08:49)
[2020-12-23] MEDS: METOPROLOL TARTRATE 25MG TABLET PO SCH ×2 (08:50→20:32)
[2020-12-23] MEDS ORDERED: DEXAMETHASONE 4MG/ML 1ML VIAL PO SCH (09:00)
[2020-12-23] MEDS: LACTULOSE 20G/30ML UDC PO PRN (14:27)
[2020-12-23] MEDS: ZOLPIDEM TARTRATE 5MG TABLET PO PRN (20:30)
[2020-12-24] VITALS (12 sets, daily range): BP systolic 97–146; BP diastolic 48–81
[2020-12-24] MEDS: IPRATROPIUM/ALBUTEROL 0.5-3(2.5)MG/3ML NEB HHN SCH ×4 (02:07→21:38)
[2020-12-24] MEDS: DILTIAZEM HCL 60MG TABLET PO SCH ×2 (05:39)
[2020-12-24] MEDS: ENOXAPARIN 30MG/0.3ML SYR SUBCUT SCH ×2 (08:53→21:00)
[2020-12-24] MEDS: ASPIRIN 81MG EC TABLET PO SCH (08:54)
[2020-12-24] MEDS: DOCUSATE SODIUM 100MG CAPSULE PO PRN (08:54)
[2020-12-24] MEDS: ASCORBIC ACID 500 MG TABLET PO SCH ×2 (08:54→21:00)
[2020-12-24] MEDS: GUAIFENESIN/DM 600MG/30MG ER TAB 12HR PO SCH ×2 (08:54→21:00)
[2020-12-24] MEDS: CHOLECALCIFEROL (D3) 1000 UNIT TABLET PO SCH (08:54)
[2020-12-24] MEDS: FAMOTIDINE 20MG TABLET PO SCH ×2 (08:54→21:01)
[2020-12-24] MEDS: METOPROLOL TARTRATE 25MG TABLET PO SCH ×2 (08:54→21:01)
[2020-12-24] MEDS: ZINC SULFATE 220 MG ( 50 ) CAPSULE PO SCH (08:54)
[2020-12-24] MEDS: ZOLPIDEM TARTRATE 5MG TABLET PO PRN (21:00)
[2020-12-25] VITALS (13 sets, daily range): BP systolic 117–161; BP diastolic 60–84
[2020-12-25] MEDS: IPRATROPIUM/ALBUTEROL 0.5-3(2.5)MG/3ML NEB HHN SCH ×3 (08:37→23:45)
[2020-12-25] MEDS: ASCORBIC ACID 500 MG TABLET PO SCH ×2 (09:00→20:02)
[2020-12-25] MEDS: FAMOTIDINE 20MG TABLET PO SCH ×2 (09:00→20:02)
[2020-12-25] MEDS: ZINC SULFATE 220 MG ( 50 ) CAPSULE PO SCH (09:00)
[2020-12-25] MEDS: GUAIFENESIN/DM 600MG/30MG ER TAB 12HR PO SCH ×2 (09:00→20:02)
[2020-12-25] MEDS: ASPIRIN 81MG EC TABLET PO SCH (09:00)
[2020-12-25] MEDS: CHOLECALCIFEROL (D3) 1000 UNIT TABLET PO SCH (09:00)
[2020-12-25] MEDS: DOCUSATE SODIUM 100MG CAPSULE PO PRN (09:00)
[2020-12-25] MEDS: METOPROLOL TARTRATE 25MG TABLET PO SCH ×2 (09:00→20:03)
[2020-12-25] MEDS: ENOXAPARIN 30MG/0.3ML SYR SUBCUT SCH ×2 (09:01→20:02)
[2020-12-25] MEDS: ZOLPIDEM TARTRATE 5MG TABLET PO PRN (20:10)
[2020-12-26] VITALS (12 sets, daily range): BP systolic 107–159; BP diastolic 58–83
[2020-12-26 06:47] LABS: BASOPHILS % 0.2 % (0.0-2.0); EOSINOPHILS % 1.2 % (0.0-5.0); HEMATOCRIT. 35.7 % (42.0-52.0); HEMOGLOBIN. 12.1 g/dL (14.0-18.0); LYMPHOCYTES % 11.2 % (20.0-50.0); MEAN CORPUSCULAR HEMOGLOBIN 31.4 pg (28.0-32.0); MEAN CORPUSCULAR VOLUME 92.4 fL (80.0-94.0); MEAN PLATELET VOLUME 8.1 fl (7.4-10.4); MONOCYTES % 4.8 % (2.0-8.0); NEUTROPHILS % 82.6 % (40.0-76.0); PLATELET 161 x1000/uL (130-400); RED BLOOD CELL COUNT 3.86 mill/uL (4.7-6.1); RED CELL DISTRIBUTION WIDTH 13.9 % (11.6-14.6)
[2020-12-26 07:04] LABS: CHLORIDE 101 mEq/L (98-107)
[2020-12-26] MEDS: METOPROLOL TARTRATE 25MG TABLET PO SCH ×2 (08:02→20:18)
[2020-12-26] MEDS: ZINC SULFATE 220 MG ( 50 ) CAPSULE PO SCH (08:02)
[2020-12-26] MEDS: GUAIFENESIN/DM 600MG/30MG ER TAB 12HR PO SCH ×2 (08:02→20:18)
[2020-12-26] MEDS: ASPIRIN 81MG EC TABLET PO SCH (08:02)
[2020-12-26] MEDS: ASCORBIC ACID 500 MG TABLET PO SCH ×2 (08:02→20:18)
[2020-12-26] MEDS: CHOLECALCIFEROL (D3) 1000 UNIT TABLET PO SCH (08:03)
[2020-12-26] MEDS: FAMOTIDINE 20MG TABLET PO SCH ×2 (08:03→20:18)
[2020-12-26] MEDS: ENOXAPARIN 30MG/0.3ML SYR SUBCUT SCH ×2 (08:03→20:18)
[2020-12-26] MEDS: IPRATROPIUM/ALBUTEROL 0.5-3(2.5)MG/3ML NEB HHN SCH ×3 (09:23→21:02)
[2020-12-26] MEDS: ZOLPIDEM TARTRATE 5MG TABLET PO PRN (20:18)
[2020-12-27] VITALS (13 sets, daily range): BP systolic 106–150; BP diastolic 56–76
[2020-12-27] MEDS: IPRATROPIUM/ALBUTEROL 0.5-3(2.5)MG/3ML NEB HHN SCH ×4 (01:09→21:14)
[2020-12-27] MEDS: ZINC SULFATE 220 MG ( 50 ) CAPSULE PO SCH (08:07)
[2020-12-27] MEDS: ASCORBIC ACID 500 MG TABLET PO SCH ×2 (08:07→20:16)
[2020-12-27] MEDS: GUAIFENESIN/DM 600MG/30MG ER TAB 12HR PO SCH ×2 (08:07→20:16)
[2020-12-27] MEDS: METOPROLOL TARTRATE 25MG TABLET PO SCH ×2 (08:07→21:00)
[2020-12-27] MEDS: FAMOTIDINE 20MG TABLET PO SCH ×2 (08:07→20:16)
[2020-12-27] MEDS: CHOLECALCIFEROL (D3) 1000 UNIT TABLET PO SCH (08:07)
[2020-12-27] MEDS: ASPIRIN 81MG EC TABLET PO SCH (08:07)
[2020-12-27] MEDS: ENOXAPARIN 30MG/0.3ML SYR SUBCUT SCH ×2 (08:07→20:16)
[2020-12-27] MEDS: ONDANSETRON HCL 4MG/2ML INJ IV PRN (17:45)
[2020-12-27] MEDS: ZOLPIDEM TARTRATE 5MG TABLET PO PRN (20:16)
[2020-12-28] VITALS (15 sets, daily range): BP systolic 101–155; BP diastolic 43–88
[2020-12-28] MEDS: IPRATROPIUM/ALBUTEROL 0.5-3(2.5)MG/3ML NEB HHN SCH ×4 (03:09→21:11)
[2020-12-28] MEDS: ASCORBIC ACID 500 MG TABLET PO SCH ×2 (09:30→21:01)
[2020-12-28] MEDS: GUAIFENESIN/DM 600MG/30MG ER TAB 12HR PO SCH ×2 (09:30→21:00)
[2020-12-28] MEDS: CHOLECALCIFEROL (D3) 1000 UNIT TABLET PO SCH (09:30)
[2020-12-28] MEDS: FAMOTIDINE 20MG TABLET PO SCH ×2 (09:31→21:00)
[2020-12-28] MEDS: ASPIRIN 81MG EC TABLET PO SCH (09:31)
[2020-12-28] MEDS: ENOXAPARIN 30MG/0.3ML SYR SUBCUT SCH ×2 (09:31→21:01)
[2020-12-28] MEDS: ZINC SULFATE 220 MG ( 50 ) CAPSULE PO SCH (09:31)
[2020-12-28] MEDS: METOPROLOL TARTRATE 25MG TABLET PO SCH ×2 (09:32→21:01)
[2020-12-28] MEDS: ONDANSETRON HCL 4MG/2ML INJ IV PRN (18:24)
[2020-12-28] MEDS: ZOLPIDEM TARTRATE 5MG TABLET PO PRN (21:07)
[2020-12-29] VITALS (17 sets, daily range): BP systolic 107–144; BP diastolic 41–87
[2020-12-29] MEDS: IPRATROPIUM/ALBUTEROL 0.5-3(2.5)MG/3ML NEB HHN SCH ×4 (01:08→20:44)
[2020-12-29] MEDS: CHOLECALCIFEROL (D3) 1000 UNIT TABLET PO SCH (09:09)
[2020-12-29] MEDS: GUAIFENESIN/DM 600MG/30MG ER TAB 12HR PO SCH ×2 (09:09→21:29)
[2020-12-29] MEDS: METOPROLOL TARTRATE 25MG TABLET PO SCH ×2 (09:09→21:00)
[2020-12-29] MEDS: FAMOTIDINE 20MG TABLET PO SCH ×2 (09:09→21:29)
[2020-12-29] MEDS: ASPIRIN 81MG EC TABLET PO SCH (09:09)
[2020-12-29] MEDS: ZINC SULFATE 220 MG ( 50 ) CAPSULE PO SCH (09:10)
[2020-12-29] MEDS: ENOXAPARIN 30MG/0.3ML SYR SUBCUT SCH ×2 (09:10→21:31)
[2020-12-29] MEDS: ASCORBIC ACID 500 MG TABLET PO SCH ×2 (13:05→21:34)
[2020-12-29 15:05] LABS: BG BASE EXCESS 3.6 mmol/L (-2.0-2.0); BG CARBOXYHEMOGLOBIN 0.2 % (0.5-1.5); BG DEOXYHEMOGLOBIN 8.5 % (0.0-5.0); BG FRACTION INSPIRED OXYGEN 21; BG HCO3 ACT 27.5 mmol/L (22.0-26.0); BG METHEMOGLOBIN 0.4 % (0.0-1.5); BG OXYGEN SATURATION 91.4 % (92.0-98.5); BG OXYHEMOGLOBIN 90.9 % (94.0-97.0); BG PCO2 39.3 mmHg (35.0-45.0); BG PH 7.463 (7.350-7.450); BG PO2 59.7 mmHg (75.0-100.0); BG SAMPLE SITE LEFT BRACHIAL; BG TOTAL HEMOGLOBIN 12.5 g/dL (12.0-18.0); BG VENT MODE ROOM AIR
[2020-12-29] MEDS: ZOLPIDEM TARTRATE 5MG TABLET PO PRN (21:29)
[2020-12-30] VITALS (14 sets, daily range): BP systolic 100–167; BP diastolic 47–86
[2020-12-30] MEDS: IPRATROPIUM/ALBUTEROL 0.5-3(2.5)MG/3ML NEB HHN SCH ×3 (02:17→11:51)
[2020-12-30] MEDS: ASPIRIN 81MG EC TABLET PO SCH (09:06)
[2020-12-30] MEDS: FAMOTIDINE 20MG TABLET PO SCH (09:07)
[2020-12-30] MEDS: METOPROLOL TARTRATE 25MG TABLET PO SCH (09:07)
[2020-12-30] MEDS: DOCUSATE SODIUM 100MG CAPSULE PO PRN (09:07)
[2020-12-30] MEDS: CHOLECALCIFEROL (D3) 1000 UNIT TABLET PO SCH (09:08)
[2020-12-30] MEDS: GUAIFENESIN/DM 600MG/30MG ER TAB 12HR PO SCH (09:08)
[2020-12-30] MEDS: ASCORBIC ACID 500 MG TABLET PO SCH (09:08)
[2020-12-30] MEDS: LACTULOSE 20G/30ML UDC PO PRN (09:08)
[2020-12-30] MEDS: ZINC SULFATE 220 MG ( 50 ) CAPSULE PO SCH (09:08)
[2020-12-30] MEDS: ENOXAPARIN 30MG/0.3ML SYR SUBCUT SCH (09:09)
[2020-12-30] MEDS ORDERED: TAMSULOSIN PO (16:43)
[2020-12-30] MEDS ORDERED: TEMA30CA PO (16:43)
[2020-12-30] MEDS ORDERED: NAPR-681 PO (16:43)
[2020-12-30] MEDS ORDERED: LACT10SO3 PO (16:43)
[2020-12-30] MEDS ORDERED: PRED2.5T4 PO (16:43)
[2020-12-30] MEDS ORDERED: LISI20TA31 PO (16:43)
[2020-12-30] MEDS ORDERED: FINA5TAB11 PO (16:43)
[2020-12-30] MEDS ORDERED: ATOR40TA70 PO (16:43)
== END 2020-12-30 18:00 | disposition home or self-care (01) | DRG 871 ==
LOC: ER 14:48 → 7WST 18:22 → EDBEDREQ 18:25 → EDBEDREQTM 18:25 → ENRESERV 19:53 → SUPCPDRO 21:46 → 3WST 12-11 16:02
PROVIDERS: ADMIT Internal Medicine; ATTEND Internal Medicine
PROC: 5A0955A Assistance with Respiratory Ventilation, Greater than 96 Consecutive Hours, High Flow/Velocity Cannula (ICD-10-PCS; principal; 2020-12-17)
DX: A41.89 Other specified sepsis (principal); U07.1 COVID-19; J12.82 Pneumonia due to coronavirus disease 2019; J96.01 Acute respiratory failure with hypoxia; I50.33 Acute on chronic diastolic (congestive) heart failure; E44.1 Mild protein-calorie malnutrition; E87.1 Hypo-osmolality and hyponatremia; I47.2 Ventricular tachycardia; D63.8 Anemia in other chronic diseases classified elsewhere; E83.51 Hypocalcemia; F17.210 Nicotine dependence, cigarettes, uncomplicated; I25.10 Atherosclerotic heart disease of native coronary artery without angina pectoris; F41.9 Anxiety disorder, unspecified; I11.0 Hypertensive heart disease with heart failure; I16.0 Hypertensive urgency; I77.1 Stricture of artery; I49.3 Ventricular premature depolarization; K30 Functional dyspepsia; Z78.9 Other specified health status; Z68.30 Body mass index [BMI] 30.0-30.9, adult
CPT/HCPCS: 36415; 36600; 71045; 71275; 74176; 80048; 80053; 80061; 81003; 82375; 82550; 82553; 82607; 82728; 82746; 82805; 83036; 83540; 83550; 83605; 83615; 83735; 83880; 84100; 84145; 84439; 84443; 84484; 85025; 85379; 86140; 87426; 93005; 93306; 93970; 94618; 94640; 97110; 97162; 97166; 97530; 99285; C1893; J0456; J0696; J1100; J1650; J1885; J2405; J7040; J7060; Q9967; U0003; U0005